=== PATIENT | female | born 1970 | race African-American/Black ===

== ENCOUNTER 2021-11-02 05:14 | Observation (INO) ==
[2021-10-27 11:26] LABS: Basophils % 0.2 % (0.0-0.8); Eosinophils # 0.4 10*3/uL (0.0-0.87); Eosinophils % 2.8 % (0.00-10.9); Hematocrit 31.4 VOL% (35.7-47.0); Hemoglobin 10.3 GM/DL (12.0-16.0); Immature Granulocytes % 0.5 %; Immature Granulocytes Absolute 0.07 #; Lymphocytes # 4.1 10*3/uL (1.4-4.0); Lymphocytes % 27.6 % (21.3-54.2); Mean Corpuscular HGB Conc 32.8 GM/DL (32-36); Mean Corpuscular Volume 102.6 FL (87-102); Monocytes % 8.3 % (1.7-12.7); Neutrophils % 60.6 % (38.7-73.9); Platelet Count 220 T/CUMM (130-400); Red Blood Count 3.06 MC/CUMM (3.8-5.5); Red Cell Distribution Width 12.7 % (9.3-17.3)
[2021-10-27 11:36] LABS: Albumin 3.5 G/DL (3.4-5.0); Bilirubin,Total 0.5 MG/DL (0.20-1.00); Calcium 8.4 MG/DL (8.5-10.1); INR 0.9; Osmolality,Calculated 282.4 MOS/KG (273-304); PT Patient Result 10.6 SECS (10.5-12.0); Partial Thromboplastin Time 25.9 SECS (23.8-32.1); Total Protein 7.6 G/DL (6.4-8.2)
[2021-10-27 11:40] LABS: Bacteria,Urine Occasional /HPF (Few); Mucus,Urine Few /LPF (Occasional); RBC,Urine 1 /HPF (0-4); Squamous Epithelial Cell,Urine Few /HPF (0-10)
[2021-10-27 11:45] LABS: Bilirubin,Urine Negative (Negative); Blood, Urine Negative (Negative); Glucose,Urine (UA) Negative (Negative); Ketones,Urine Negative (Negative); Nitrite,Urine Negative (Negative); Protein,Urine Negative; Urine Appearance Clear (Clear); Urine Color Yellow (Yellow); Urine Specific Gravity 1.025 (1.001-1.035); Urine Urobilinogen 0.2 EU/DL (<2.0)
[2021-10-27 12:07] LABS: Anisocytosis 1+; Band Neutrophils 5 % (0-10); Eosinophils 5 % (0-10); Lymphocytes 26 % (20-55); Platelet Estimate Normal; Segmented Neutrophils 55 % (50-85); Total Cells Counted 100
[2021-10-27 12:08] LABS: Macrocytosis 1+
[2021-11-02] MEDS ORDERED: VANCOMYCIN INJ 1,000 MG in SODIUM CHLORIDE 0.9% 250 ML IV ONE (06:00)
[2021-11-02] MEDS ORDERED: BACITRACIN OINT 0.9 GM PACK TOP ONE (06:48)
[2021-11-02] MEDS ORDERED: ACETAMINOPHEN 500 MG TABLET ONE (07:12)
[2021-11-02] MEDS ORDERED: GABAPENTIN 400 MG CAPSULE ONE (07:12)
[2021-11-02] MEDS ORDERED: FAMOTIDINE 20 MG TABLET ONE (07:12)
[2021-11-02] MEDS ORDERED: DIAZEPAM 5 MG TABLET ONE ×2 (07:12)
[2021-11-02] MEDS ORDERED: DEXMEDETOMIDINE 200 MCG/2 ML VIAL ONE (07:13)
[2021-11-02] MEDS ORDERED: DEXAMETHASONE 4 MG/1 ML VIAL ONE (07:13)
[2021-11-02] MEDS ORDERED: BUPIVACAINE MPF 0.5% 30 ML VIAL ONE (07:13)
[2021-11-02] MEDS ORDERED: FAMOTIDINE 20 MG TABLET PO ONE (07:14)
[2021-11-02] MEDS ORDERED: LIDOCAINE 1% 5 ML VIAL ONE (07:14)
[2021-11-02] MEDS ORDERED: ACETAMINOPHEN 500 MG TABLET PO ONE (07:14)
[2021-11-02] MEDS ORDERED: DIAZEPAM 5 MG TABLET PO ONE (07:15)
[2021-11-02] MEDS ORDERED: GABAPENTIN 400 MG CAPSULE PO ONE (07:15)
[2021-11-02] MEDS ORDERED: TRANEXAMIC ACID 1,000 MG/10 ML VIAL ONE (07:18)
[2021-11-02] MEDS ORDERED: MIDAZOLAM 2 MG/2 ML VIAL ONE (07:18)
[2021-11-02] MEDS ORDERED: ONDANSETRON 4 MG/2 ML VIAL ONE (07:18)
[2021-11-02 07:27] LABS: Calcium 8.2 MG/DL (8.5-10.1); Osmolality,Calculated 275.1 MOS/KG (273-304); Potassium 4.7 MMOL/L (3.5-5.1)
[2021-11-02] MEDS ORDERED: LACTATED RINGERS 1,000 ML IV SCH (07:30)
[2021-11-02] MEDS ORDERED: ZALEPLON 5 MG CAPSULE PO PRN (08:58)
[2021-11-02] MEDS ORDERED: oxyCODONE/ACETAMINOPHEN 5-325 MG TABLET PO PRN (08:58)
[2021-11-02] MEDS ORDERED: MAGNESIUM HYDROXIDE SUSP 30 ML UDCUP PO PRN (08:58)
[2021-11-02] MEDS ORDERED: KETOROLAC 30 MG/1 ML VIAL IV SCH (09:00)
[2021-11-02] MEDS ORDERED: ETOMIDATE 40 MG/20 ML VIAL IV ONE (09:04)
[2021-11-02] MEDS ORDERED: MORPHINE 4 MG/1 ML VIAL IV PRN ×2 (09:22)
[2021-11-02 10:35] LABS: Mucus,Urine Occasional /LPF (Occasional); RBC,Urine 1 /HPF (0-4); Squamous Epithelial Cell,Urine Occasional /HPF (0-10)
[2021-11-02] MEDS ORDERED: LACTATED RINGERS 1,000 ML IV ONE (10:38)
[2021-11-02 10:44] LABS: Bilirubin,Urine Negative (Negative); Blood, Urine Trace mg/dL (Negative); Glucose,Urine (UA) Negative (Negative); Ketones,Urine Negative (Negative); Nitrite,Urine Negative (Negative); Protein,Urine Negative; Urine Appearance Clear (Clear); Urine Color Yellow (Yellow); Urine Urobilinogen 0.2 EU/DL (<2.0); Urine pH 6.5 (4.5-8.0)
[2021-11-02] MEDS: LACTATED RINGERS 1,000 ML IV SCH ×2 (11:43→20:40)
[2021-11-02] MEDS: DOCUSATE SODIUM 100 MG CAPSULE PO SCH ×2 (11:43→20:36)
[2021-11-02] MEDS: ONDANSETRON 4 MG/2 ML VIAL IV PRN ×2 (13:29→20:36)
[2021-11-02] MEDS: PANTOPRAZOLE 40 MG TABLET PO SCH (14:49)
[2021-11-02] MEDS ORDERED: AMITRIPTYLINE 25 MG TABLET PO SCH (21:00)
[2021-11-02] MEDS: oxyCODONE/ACETAMINOPHEN 5-325 MG TABLET PO PRN (22:11)
[2021-11-02] MEDS: diphenhydrAMINE CAP 25 MG CAPSULE PO PRN (22:13)
[2021-11-03] MEDS ORDERED: FONDAPARINUX 2.5 MG/0.5 ML SYRINGE SUBCUT SCH (03:00)
[2021-11-03] MEDS: LACTATED RINGERS 1,000 ML IV SCH (04:45)
[2021-11-03 05:32] LABS: Basophils % 0.1 % (0.0-0.8); Hematocrit 28.7 VOL% (35.7-47.0); Hemoglobin 9.3 GM/DL (12.0-16.0); Immature Granulocytes % 0.6 %; Immature Granulocytes Absolute 0.08 #; Lymphocytes # 1.8 10*3/uL (1.4-4.0); Lymphocytes % 12.3 % (21.3-54.2); Mean Corpuscular HGB Conc 32.4 GM/DL (32-36); Mean Corpuscular Volume 102.5 FL (87-102); Mean Platelet Volume 9.7 FL (9.6-12.0); Monocytes % 6.6 % (1.7-12.7); Neutrophils % 80.4 % (38.7-73.9); Platelet Count 234 T/CUMM (130-400); Red Cell Distribution Width 12.8 % (9.3-17.3); White Blood Count 14.4 T/CUMM (4-12)
[2021-11-03 05:48] LABS: Calcium 8.5 MG/DL (8.5-10.1)
[2021-11-03 05:58] LABS: Free T4 (Free Thyroxine) 1.09 NG/DL (0.76-1.46); Thyroid Stimulating Hormone 0.385 uIU/ml (0.358-3.74)
[2021-11-03 07:56] LABS: Folate 15.88 NG/ML (5.38-24.0)
[2021-11-03] MEDS: diphenhydrAMINE CAP 25 MG CAPSULE PO PRN (08:26)
[2021-11-03] MEDS: oxyCODONE/ACETAMINOPHEN 5-325 MG TABLET PO PRN (08:26)
[2021-11-03] MEDS: DOCUSATE SODIUM 100 MG CAPSULE PO SCH (08:26)
[2021-11-03] MEDS: PANTOPRAZOLE 40 MG TABLET PO SCH (08:26)
[2021-11-03] MEDS ORDERED: CETIRIZINE 10 MG TABLET PO SCH (09:00)
[2021-11-03] MEDS ORDERED: POTASSIUM CHLORIDE 20 MEQ TABLET PO SCH (09:00)
[2021-11-03] MEDS ORDERED: LOSARTAN 50 MG TABLET PO SCH (09:00)
[2021-11-03] MEDS ORDERED: hydroCHLOROthiazide 12.5 MG CAPSULE PO SCH (09:00)
[2021-11-03] MEDS ORDERED: MULTIVITAMIN (CENTRUM) TABLET PO SCH (09:00)
[2021-11-03] MEDS ORDERED: MEGESTROL 400 MG/10 ML UDCUP PO SCH (09:00)
[2021-11-03 12:02] VITALS: BP 125/62
[2021-11-08] MEDS ORDERED: ERGOCALCIFEROL 50,000 UNIT CAPSULE PO SCH (09:00)
== END 2021-11-03 12:07 | disposition home or self-care (01) ==
LOC: N.SDSINP 05:14 → N.OR 05:14 → N.SDSINP 05:17 → N.3E 09:59 → EDSTATUS 10:15
PROVIDERS: ADMIT Orthopaedic Surgery; ATTEND Orthopaedic Surgery

== ENCOUNTER 2021-11-13 20:32 | Observation (INO) ==
[2021-11-13] MEDS ORDERED: SODIUM CHLORIDE 0.9% 1,000 ML IV STA (20:52)
[2021-11-13] MEDS ORDERED: PROMETHAZINE 25 MG/1 ML VIAL IM STA (20:53)
[2021-11-13] MEDS ORDERED: LORazepam 2 MG/1 ML VIAL IV STA (20:53)
[2021-11-13 21:18] LABS: Basophils % 0.4 % (0.0-0.8); Eosinophils % 0.4 % (0.00-10.9); Hematocrit 28.5 VOL% (35.7-47.0); Hemoglobin 9.4 GM/DL (12.0-16.0); Immature Granulocytes % 0.4 %; Immature Granulocytes Absolute 0.04 #; Lymphocytes % 17.9 % (21.3-54.2); Mean Corpuscular Volume 101.8 FL (87-102); Mean Platelet Volume 9.7 FL (9.6-12.0); Monocytes % 8.8 % (1.7-12.7); Neutrophils % 72.1 % (38.7-73.9); Platelet Count 427 T/CUMM (130-400); Red Cell Distribution Width 12.8 % (9.3-17.3); White Blood Count 11.4 T/CUMM (4-12)
[2021-11-13 21:37] LABS: Alanine Aminotransferase 20 U/L (13-56); Albumin 3.6 G/DL (3.4-5.0); Alkaline Phosphatase 65 U/L (45-117); Aspartate Amino Transferase 19 U/L (0-37); Bilirubin,Total < 0.39 MG/DL (0.20-1.00); Blood Urea Nitrogen 39 MG/DL (7-18); Calcium 9.8 MG/DL (8.5-10.1); Carbon Dioxide 16 MMOL/L (21-32); Estimated Glom Filtration Rate 35 ML/MIN; Glucose 86 MG/DL (74-106); Osmolality,Calculated 284.5 MOS/KG (273-304); Potassium 4.4 MMOL/L (3.5-5.1); Sodium 139 MMOL/L (136-145); Total Protein 8.9 G/DL (6.4-8.2)
[2021-11-13 21:47] LABS: Granular Casts,Urine 1 /LPF (0-1); Hyaline Casts,Urine 21 /LPF (0-3); Mucus,Urine Occasional /LPF (Occasional); RBC,Urine 1 /HPF (0-4); Urine Appearance Clear (Clear); Urine Color Yellow (Yellow); Urine pH 5.5 (4.5-8.0)
[2021-11-13 21:48] LABS: Bilirubin,Urine Negative (Negative); Blood, Urine Trace mg/dL (Negative); Glucose,Urine (UA) Negative (Negative); Ketones,Urine Negative (Negative); Nitrite,Urine Negative (Negative); Protein,Urine 30 mg/dL (Negative); Urine Specific Gravity >= 1.030 (1.001-1.035); Urine Urobilinogen 0.2 eU/dL (<2.0)
[2021-11-13] MEDS ORDERED: ONDANSETRON 4 MG/2 ML VIAL IV PRN (23:43)
[2021-11-13] MEDS ORDERED: SODIUM CHLORIDE 0.9% 1,000 ML IV SCH (23:45)
[2021-11-14] MEDS ORDERED: HEPARIN LOCK FLUSH 500 UNIT/5 ML SYRINGE IV ONE ×2 (00:43→12:55)
[2021-11-14] MEDS ORDERED: IBUPROFEN 400 MG TABLET PO PRN (04:45)
[2021-11-14] MEDS ORDERED: LACTATED RINGERS 1,000 ML IV SCH (08:00)
[2021-11-14 08:44] LABS: Calcium 9.4 MG/DL (8.5-10.1); Osmolality,Calculated 283.5 MOS/KG (273-304); Potassium 4.1 MMOL/L (3.5-5.1)
[2021-11-14 08:48] LABS: Alanine Aminotransferase 19 U/L (13-56); Albumin 3.2 G/DL (3.4-5.0); Alkaline Phosphatase 62 U/L (45-117); Aspartate Amino Transferase 22 U/L (0-37); Bilirubin,Total < 0.39 MG/DL (0.20-1.00); Blood Urea Nitrogen 32 MG/DL (7-18); Calcium 9.1 MG/DL (8.5-10.1); Carbon Dioxide 18 MMOL/L (21-32); Estimated Glom Filtration Rate 46 ML/MIN; Glucose 82 MG/DL (74-106); Osmolality,Calculated 282.5 MOS/KG (273-304); Potassium 4.4 MMOL/L (3.5-5.1); Sodium 139 MMOL/L (136-145); Total Protein 7.8 G/DL (6.4-8.2)
[2021-11-14 08:52] LABS: Basophils % 0.4 % (0.0-0.8); Eosinophils # 0.1 10*3/uL (0.0-0.87); Eosinophils % 0.9 % (0.00-10.9); Hematocrit 27.5 VOL% (35.7-47.0); Hemoglobin 9.2 GM/DL (12.0-16.0); Immature Granulocytes % 0.4 %; Immature Granulocytes Absolute 0.04 #; Lymphocytes # 2.7 10*3/uL (1.4-4.0); Lymphocytes % 24.3 % (21.3-54.2); Mean Corpuscular HGB Conc 33.5 GM/DL (32-36); Mean Corpuscular Volume 102.2 FL (87-102); Mean Platelet Volume 9.6 FL (9.6-12.0); Monocytes % 10.8 % (1.7-12.7); Neutrophils % 63.2 % (38.7-73.9); Platelet Count 417 T/CUMM (130-400); Red Blood Count 2.69 MC/CUMM (3.8-5.5); White Blood Count 11.2 T/CUMM (4-12)
[2021-11-14] MEDS ORDERED: PANTOPRAZOLE 40 MG TABLET PO SCH (09:00)
[2021-11-14] MEDS ORDERED: ENOXAPARIN 40 MG/0.4 ML SYRINGE SUBCUT SCH (09:00)
[2021-11-14 11:26] VITALS: BP 135/87
[2021-11-14 12:17] LABS: Folate 19.06 NG/ML (5.38-24.0)
== END 2021-11-14 13:27 | disposition home or self-care (01) ==
LOC: EDBD → EDUNIT# → N.ED 20:32 → N.EDINP 20:32 → SUATTDRO 23:43 → N.EDINP 11-14 01:09 → N.TELES 11-14 01:50
PROVIDERS: ADMIT Internal Medicine; ATTEND Internal Medicine